=== PATIENT | male | born 1950 | race Caucasian/White ===

== ENCOUNTER → 2016-07-12 | Outpatient (CLI) | payer OTHER ==
[~2016-07-12] MED LIST: ASCO10003 PO; ATOR10TA88 PO; CYAN100020 PO; GLC/500 PO; LISIPOW PO; MULTTAB5 PO; OXYSR10 PO; RXC5 PO; VITA400C15 PO
[2016-07-12 16:08] LABS: BLOOD UREA NITROGEN 14 mg/dl (7-18); BUN/CREATININE RATIO 22.8 (10-20); CALCIUM 9.2 mg/dl (8.5-10.1); CARBON DIOXIDE 26 mmol/L (21-32); CHLORIDE 107 mmol/L (98-107); GLUCOSE 93 mg/dl (70-99); SODIUM 140 mmol/L (136-145)
[2016-07-13 06:24] LABS: ESTIMATED AVERAGE GLUCOSE 114 mg/dl; HA1C FLAG Normal (Normal)
== END | disposition home or self-care (01) ==
LOC: C.LAB 14:49
PROVIDERS: ATTEND Internal Medicine Geriatric Medicine
DX: E78.5 Hyperlipidemia, unspecified (principal); E11.9 Type 2 diabetes mellitus without complications; I10 Essential (primary) hypertension

== ENCOUNTER → 2016-10-15 | Outpatient (CLI) | payer OTHER ==
--- NOTE | 2016-10-15 15:18 | DIAGNOSTIC IMAGING REPORT ---
CHEST 2 VIEWS ROUTINE CLINICAL HISTORY: PT WENT TO LAB FIRST, PLEASE SEND TO [facility] chest pain. Dyspnea. COMPARISON STUDY: No previous studies for comparison. FINDINGS: The bones soft tissues and hemidiaphragms are normal. The cardiomediastinal silhouette is normal. The lungs are clear. The pulmonary vasculature is normal. IMPRESSION: Negative chest. Electronically signed by: Anders Mccullough M.D. 10/15/2016 3:16 PM Dictated Date/Time: 10/15/2016 3:16 PM
== END | disposition home or self-care (01) ==
LOC: C.CPL 14:12
PROVIDERS: ATTEND Orthopaedic Surgery Orthopaedic Surgery of the Spine
DX: M47.12 Other spondylosis with myelopathy, cervical region (principal)

== ENCOUNTER 2016-10-18 08:08 | Inpatient (IN) | payer OTHER ==
[2016-10-15 15:40] LABS: BASO % 0.5 %; BASO ABS # 0.03 K/uL (0-0.2); COMPLETE YES; EOS % 4.4 %; HEMATOCRIT 41.2 % (42-52); IG% 0.2 %; LYMPH % 28.9 %; LYMPH ABS # 1.76 K/uL (1.2-3.4); MEAN CORPUSCULAR HEMOGLOBIN 31.2 pg (25-34); MEAN CORPUSCULAR HGB CONC 34.7 g/dl (32-36); MEAN PLATELET VOLUME 10.2 fL (7.4-10.4); MONO % 9.2 %; NEUT % 56.8 %; PLATELET COUNT 157 K/uL (130-400); RED BLOOD COUNT 4.58 M/uL (4.7-6.1); WHITE BLOOD COUNT 6.09 K/uL (4.8-10.8)
[2016-10-15 15:44] LABS: URINE APPEARANCE CLEAR (CLEAR); URINE BILIRUBIN NEG (NEG); URINE COLOR YELLOW; URINE NITRITE NEG (NEG); URINE PH 7.5 (4.5-7.5); URINE SPECIFIC GRAVITY 1.012 (1.000-1.030); UROBILINOGEN NEG (NEG)
[2016-10-15 15:49] LABS: MANUAL MICROSCOPIC REQUIRED? NO; REVIEW REQ? NO
[2016-10-15 16:01] LABS: BLOOD UREA NITROGEN 11 mg/dl (7-18); BUN/CREATININE RATIO 16.7 (10-20); CALCIUM 8.6 mg/dl (8.5-10.1); CARBON DIOXIDE 27 mmol/L (21-32); CHLORIDE 108 mmol/L (98-107); CREATININE 0.66 mg/dl (0.60-1.40); GLUCOSE 104 mg/dl (70-99); POTASSIUM 3.9 mmol/L (3.5-5.1); SODIUM 141 mmol/L (136-145)
[2016-10-18] VITALS (14 sets, daily range): BP systolic 121–157; BP diastolic 77–92; PULSE 67–97; TEMP 36.4–37; O2SAT 92–99; Ht 175.3 cm; Wt 93.0 kg
[~2016-10-18] VITALS: Ht 175.3 cm; Wt 93.0 kg
[~2016-10-18 08:08] MED LIST changes: +ATROPINE SULFATE 0.1 MG/ML 5ML SYR IV PRN; +CEFAZOLIN 2000 MG/60 ML D5W 60 ML IV SCH; +EpHEDrine SULFATE INJ 50 MG/ML AMP IV PRN; +FENTANYL CITRATE INJ 50 MCG/1 ML 2 ML VIAL IV PRN; +HYDROmorphone INJ 1 MG/ML SYR IV PRN; +LACTATED RINGER'S 1000ML 1,000 ML IV SCH; +ONDANSETRON INJ 2 MG/ML 2 ML VIAL IV PRN; -RXC5 PO
--- NOTE | 2016-10-18 08:40 | History & Physical Bridge Note ---
H&P Re-Evaluation Bridge Note: I have examined the patient, reviewed the History & Physical and in the interval since the performance of the History & Physical I have noted the following changes of clinical significance: No changes noted
--- NOTE | 2016-10-18 08:41 | History and Physical ---
History & Physical Date Oct 18, 2016. Chief Complaint neck and arm pain History of Present Illness The patient is a 66 year old male with complaints of Additional History Hepatic Disease: No Endocrine Disorder: No Kidney Disease: No Hypertension: No Heart Disease: No Bleeding Tendencies: No Infectious Diseases: No Allergies Coded Allergies: No Known Allergies (Unverified , 10/18/16) Home Medications Scheduled Ascorbic Acid (Vitamin C), 1 TAB PO DAILY Atorvastatin (Lipitor), 10 MG PO DAILY Cyanocobalamin (Vitamin B12), 1 TAB PO DAILY Metformin Hcl (Glucophage), 500 MG PO BID Multiple Vitamins W/ Minerals (Centrum), 1 TAB PO DAILY Tocopheryl Acet,Dl-Alpha (Vitamin E), 400 INTER.UNIT PO DAILY [Lisinopril], 20 MG PO DAILY Physical Examination Skin: warm/dry, no rash Eyes: normal inspection, EOMI, sclerae normal ENT: normal ENT inspection, pharynx normal Head: normocephalic, atraumatic Neck: supple, no adenopathy, trachea midline Respiratory/Chest: lungs clear, normal breath sounds, no respiratory distress Cardiovascular: regular rate, rhythm, no edema, no murmur Abdomen / GI: normal bowel sounds, non tender Back: normal inspection Extremities: normal inspection, normal range of motion Neurologic/Psych: no motor/sensory deficits, alert, normal reflexes, oriented x 3 Diagnosis cervical stenosis Plan of Treatment cervical corpectomy C4 fusion C3-5
[2016-10-18] MEDS ORDERED: SODIUM CHLORIDE 0.9% PF 50 ML VIAL ONE (08:57)
[2016-10-18] MEDS ORDERED: BACITRACIN 50000 UNIT VIAL ONE (08:58)
[2016-10-18] MEDS ORDERED: FENTANYL CITRATE INJ 50 MCG/1 ML 2 ML VIAL ONE ×3 (09:01→10:47)
[2016-10-18] MEDS ORDERED: MIDAZOLAM HCL 1 MG/ML 2ML VIAL ONE (09:01)
[2016-10-18] MEDS ORDERED: HYDROmorphone INJ 2 MG/ML SYR/VIAL ONE ×2 (09:42→11:11)
[2016-10-18] MEDS ORDERED: PROPOFOL IV EMULSION 10 MG/ML 20 ML VIAL IV ONE (10:50)
[2016-10-18] MEDS ORDERED: DEXAMETHASONE SOD INJ 4 MG/ML VIAL ONE (10:50)
[2016-10-18] MEDS ORDERED: LIDOCAINE HCL 2% 2 ML VIAL (20MG/ML) ONE (10:50)
[2016-10-18] MEDS ORDERED: ROCURONIUM BROMIDE 10 MG/ML 5 ML VIAL ONE (10:50)
[2016-10-18] MEDS ORDERED: FLOSEAL HEMOSTATIC MATRIX 5ML TOP ONE (11:05)
[2016-10-18] MEDS ORDERED: ACETAMINOPHEN IV 100 ML IV PRN (11:15)
[2016-10-18] MEDS ORDERED: DiphenhydrAMINE HCL 50 MG/ML VIAL IV PRN (11:15)
[2016-10-18] MEDS ORDERED: OXYCODONE HCL IR 5 MG TAB (IMMEDIATE RELEASE) PO PRN (11:15)
[2016-10-18] MEDS ORDERED: LORAZEPAM INJ 0.5 MG in SYRINGE 0.75 ML IV PRN (11:15)
[2016-10-18] MEDS ORDERED: RACEPINEPHRINE 2.25% NEBU SOLN 0.5 ML VIAL INH PRN (11:15)
[2016-10-18] MEDS ORDERED: MAGNESIUM HYDROXIDE SUSP 30 ML UDC PO PRN (11:15)
[2016-10-18] MEDS ORDERED: NALOXONE HCL 0.4 MG/1 ML VIAL/CARP IV PRN (11:15)
[2016-10-18] MEDS ORDERED: DO NOT ADMINISTER FLU VACCINE PRN ×3 (11:15)
[2016-10-18] MEDS ORDERED: HYDROmorphone INJ 0.5 MG/0.5 ML SYR IV PRN (11:15)
[2016-10-18] MEDS ORDERED: DO NOT ADMINISTER PNEUMOCOCCAL VACCINE PRN ×2 (11:15)
[2016-10-18] MEDS ORDERED: LORAZEPAM 0.5 MG TAB PO PRN (11:15)
[2016-10-18] MEDS ORDERED: ONDANSETRON INJ 2 MG/ML 2 ML VIAL IV PRN (11:15)
[2016-10-18] MEDS ORDERED: DEXAMETHASONE INJ 8 MG in SYRINGE 0 ML IV PRN (11:15)
--- NOTE | 2016-10-18 11:15 | [facility] Post Operative Brief Note ---
Immediate Operative Summary Operative Date Oct 18, 2016. Pre-Operative Diagnosis Cervical Stenosis Post-Operative Diagnosis Cervical Stenosis Procedure(s) Performed C4 Anterior Removal of Cervical Vertebral Body, C3-C5 Decompression and Fusion. Adjacent Discs, Placement of Prosthetic Spacer, Application of Adelia, Anterior Plate and Screw Fixation Surgeon Dr. Kenan Sumner [employer] Officer Surgeon(s) Todd Schaffer PA-C Estimated Blood Loss 125CC Findings stenosis Specimens None per surgeon
[2016-10-18] MEDS ORDERED: EpHEDrine SULFATE 50MG/5ML SYR ONE (11:39)
[2016-10-18] MEDS ORDERED: PHENYLEPHRINE 100MCG/ML 5ML SYR ONE (11:39)
[2016-10-18] MEDS ORDERED: ONDANSETRON INJ 2 MG/ML 2 ML VIAL ONE (11:39)
[2016-10-18] MEDS ORDERED: NEOSTIGMINE METHYLSULFATE 1 MG/ML 10ML VIAL ONE (11:39)
[2016-10-18] MEDS ORDERED: GLYCOPYRROLATE INJ 0.2 MG/ML VIAL ONE (11:39)
[2016-10-18] MEDS ORDERED: PHARMACY GLYCEMIC MGMT CONSULT SCH (12:29)
--- NOTE | 2016-10-18 12:31 | OPERATIVE REPORT ---
DATE OF OPERATION: 10/18/2016 PREOPERATIVE DIAGNOSIS: Cervical spinal stenosis with myeloradiculopathy. POSTOPERATIVE DIAGNOSIS: Same. PROCEDURE PERFORMED: 1. Anterior cervical corpectomy C4. 2. Anterior cervical arthrodesis C3-C5. 3. Placement of PEEK cage 27 mm in height C3-C5. 4. Placement of locally harvested morcellized autograft combined with Adelia bone graft in the interbody cage. 5. Application of Cortes plate and screws from C3-C5. SURGEON: Dr. Kenan Sumner. HOSEMAN: Todd Schaffer PA-C. ANESTHESIA: General. DISPOSITION: The patient awakened and taken to PACU in stable condition. HISTORY OF PATIENT'S PROBLEMS: This is a 66-year-old male who presents with above-mentioned diagnosis. After failing an extensive course of nonoperative care, elected to undergo the above-mentioned procedure. Risks, benefits, pros, cons, and alternatives were outlined in detail preoperatively. PROCEDURE IN DETAIL: The patient was met with preoperatively, case discussed, and all questions were addressed. At that point, the patient was taken back to operative suite, and after undergoing successful general intubation by the department of anesthesia, was placed in a supine position on Luc table with head in Irene head inspector. All bony prominences were well padded and the eyes were inspected to ensure there was no external pressure placed upon them. At this point, the anterior cervical spine was prepped and draped in normal sterile fashion. With the assistance of fluoroscopy, we identified the C4 vertebral body and a transverse incision was placed along the right anterior aspect of the cervical spine overlying this region. Sharp dissection with the assistance of bipolar electrocautery performed down to and exposing the anterior cervical spine from C3-C5. A self-retaining retractor was placed. I then performed a complete discectomy of C3-C4 out to the uncovertebral joints bilaterally, followed by C4-C5. [place] distracting pins were then placed in C3-C5 to distract across the C4 vertebral body. Complete corpectomy was then performed including removal of all posterior annular fibers, longitudinal ligament, and bilateral foraminotomies, addressing absolutely severe spinal stenosis. After this was complete, endplates were burred to subcortical bleeding bone and a 27 mm PEEK cage filled with locally harvested morcellized autograft and Adelia bone graft tapped in position. Distracting apparatus was removed. Cortes plate and screws applied with the assistance of fluoroscopy. The incision was then copiously irrigated, explored to ensure there was no damage to surrounding structures or remaining bleeding. A 10 round YINA drain inserted, then closed with 2-0 Vicryl in the fascia, 4-0 Monocryl for final skin closure. Steri-Strips and sterile dressing placed. The patient was awakened and taken to PACU in stable condition. I attest to the content of the Intraoperative Record and any orders documented therein. Any exception s are noted below.
--- NOTE | 2016-10-18 12:35 | Anesthesiology Progress Note ---
Anesthesia Post Op Note Date & Time Oct 18, 2016 at 12:35 Vital Signs Pain Intensity: 0 Vital Signs Past 12 Hours Date Time Temp Pulse Resp B/P (MAP) Pulse Ox O2 Delivery O2 Flow Rate FiO2 10/18/16 12:25 79 18 142/87 97 Nasal Cannula 2 10/18/16 12:15 81 16 154/89 97 Nasal Cannula 2 10/18/16 12:05 80 16 138/89 98 Nasal Cannula 2 10/18/16 11:55 84 17 136/83 97 Nasal Cannula 2 10/18/16 11:45 76 15 124/87 98 Mask 10 10/18/16 11:35 75 12 134/80 100 Mask 10 10/18/16 11:28 36.0 78 14 128/78 98 Mask 10 10/18/16 08:30 36.8 67 18 144/86 (105) 93 Room Air Notes Mental Status: alert / awake / arousable, participated in evaluation Pt Amnestic to Procedure: Yes Nausea / Vomiting: adequately controlled Pain: adequately controlled Airway Patency, RR, SpO2: stable & adequate BP & HR: stable & adequate Hydration State: stable & adequate Anesthetic Complications: no major complications apparent
--- NOTE | 2016-10-18 13:09 | DIAGNOSTIC IMAGING REPORT ---
INTRAOPERATIVE RADIOGRAPHS CLINICAL HISTORY: Cervical spinal fusion. Fluoroscopy time: 10 seconds. FINDINGS: 2 spot fluoroscopic views of the cervical spine are presented. There are changes from anterior spinal fusion seen from C3-C6. There has likely been corpectomy at C4 and C5. The orthopedic hardware appears intact. An endotracheal tube is in place. A surgical drain is seen on the second image. IMPRESSION: Intraoperative images from C3 -C6 spinal fusion as above. See operative report for detailed findings. Electronically signed by: Juma Fried M.D. 10/18/2016 1:08 PM Dictated Date/Time: 10/18/2016 1:07 PM
[2016-10-18] MEDS ORDERED: RXC5 PO (13:21)
--- NOTE | 2016-10-18 13:22 | Discharge Instructions ---
Discharge Instructions Date of Service Oct 18, 2016. Admission Reason for Admission: Cervical Spinal Stenosis Discharge Discharge Diagnosis / Problem: cervical stenosis Discharge Goals Goal(s): Improve function Activity Recommendations Activity Limitations: per Instructions/Follow-up section . Instructions / Follow-Up Instructions / Follow-Up ACTIVITY RECOMMENDATIONS: SELF CARE INSTRUCTIONS AFTER CERVICAL FUSIONS 1. No smoking. Smoking drastically decreases the chance of a solid fusion. 2. No bending, lifting more than 5 pounds, or twisting (roll like a log when turning in bed). 3. You may shower 3 days after surgery. Thoroughly dry wound. Do not soak in the tub. 4. Cervical collar: Must be worn at all times including sleeping. You may remove the brace only to bath, eat and if you are sitting in a recliner. 5. Please walk as much as you can for exercise. Gradually increase the distance that you walk as your endurance increases. SPECIAL CARE INSTRUCTIONS: VERY IMPORTANT TO READ AND REVIEW A. Do not take any anti-inflammatory medications (i.e. Indocin, Advil, Aspirin, Naprosyn, Aleve, Motrin, etc.) as these may inhibit the chance of a solid fusion. Tylenol is okay to take. B. Your surgical incision has been closed with a cosmetic suture under the skin that will dissolve in about 6 weeks. In 14 days, you can use a pair of clean scissors and cut the suture that is left outside of the skin at the ends of your incision. C. Complications are uncommon, but please contact us if you have any signs or symptoms of: 1. wound infection (fever higher than 102.5 degrees F, redness, separation of wound, drainage, or increasing pain from the incision) 2. blood clots in legs (pain, swelling, redness and warmth in legs) 3. urinary tract infection (fever higher than 102.5 degrees, burning upon urination or increased frequency of urination) 4. nerve problems (inability to walk on your toes or heels, numbness, loss of bowel or bladder control) 5. any other symptoms that concern you. D. Please call the office at if you have any concerns or questions about your operation or recovery. MANAGING PAIN AFTER SPINAL SURGERY 1. Narcotic medication is intended for short-term use and will be provided for surgical pain. Surgical pain usually lasts for a period of 4-6 weeks. Narcotic medication includes Percocet, Vicodin, Darvocet, Tylenol #3 or Lortab. 2. Longer-term pain is more appropriately treated with non-narcotic medication such as Tylenol ES. 3. Muscle spasm is not appropriately treated with narcotics. Muscle relaxers such as Soma, Flexeril or Skelaxin can be used along with Tylenol ES. 4. Remember that we all live with some "aches and pains". This is not unusual or uncommon after an injury or as we get older. 5. We will provide appropriate medication within the normal guidelines of their prescribed use. We will also be very cautious and aware of potential abuse and extended duration of patients' medication needs. 6. Please allow 2-3 days to process refills. Prescriptions will not be mailed but must be picked up at the office. FOLLOW UP VISIT: Keep your scheduled follow-up appointment. Any questions, please call the office at . Current Hospital Diet Patient's current hospital diet: Clear Liquid Diet Discharge Diet Recommended Diet: Regular Diet Procedures Procedures Performed: C4 Anterior Removal of Cervical Vertebral Body, C3-C5 Decompression and Fusion. Adjacent Discs, Placement of Prosthetic Spacer, Application of Adelia, Anterior Plate and Screw Fixation Pending Studies Studies pending at discharge: no Medical Emergencies . Who to Call and When: Medical Emergencies: If at any time you feel your situation is an emergency, please call 911 immediately. . Non-Emergent Contact Non-Emergency issues call your: Primary Care Provider . "Provider Documentation" section prepared by Kenan Sumner. . VTE Core Measure Inpt VTE Proph given/why not?: Rosanna Sy, SCD's
[2016-10-18] MEDS: SODIUM CHLORIDE 0.9% 1000ML 1,000 ML IV SCH (13:24)
[2016-10-18] MEDS ORDERED: HYDROmorphone INJ 1 MG/ML SYR IV PRN (13:30)
[2016-10-18] MEDS ORDERED: GLUCOSE 10 TABS/TUBE PO PRN (14:00)
[2016-10-18] MEDS ORDERED: SCOPOLAMINE 1.5 MG TDSY TD SCH (14:00)
[2016-10-18] MEDS ORDERED: GLUCOSE 40% GEL 15 GM TUBE PO PRN (14:00)
[2016-10-18] MEDS ORDERED: GLUCAGON FOR INJ 1 MG VIAL SQ PRN (14:00)
[2016-10-18] MEDS ORDERED: DEXTROSE 50% 50 ML SYR IV PRN (14:00)
--- NOTE | 2016-10-18 14:03 | Pharmacy Progress Note ---
Glycemic Control Intl Consult Date of Service Oct 18, 2016. Scope Glycemic Pharmacist consulted by Dr Sumner on 10/18/16 for glycemic control and to write orders per [facility] inpatient glycemic control protocol Objective Weight (Kilograms): 93.000 Accuchecks BSG (last 24hrs): Test 10/18/16 08:35 10/18/16 11:33 Bedside Glucose 111 mg/dl (70-99) 129 mg/dl (70-99) Recent Pertinent Medications Outpatient Anti-diabetic Regimen: * Metformin 500mg PO BID * last dose 10/16 prior to surgery * A1c = 5.6 % 07/12/16 The patient is currently receiving: * nothing at this time Risk Factors for Insulin Resistance: * Steroids: Dexamethasone 12mg x1 in OR, then 6mg IV every 8 hours x 3 doses post-operatively * Infection: prophylactic ABX with cefazolin * IVF: LR --> NSS * Recent Surgery: POD #0 * Diet: Clear liquid Assessment & Plan ASSESSMENT: 10/18/16 * 66 y/o admitted postoperatively who will receive high dose stress steroids x 24 hours * utilize aggressive, weight based dosing of basal/bolus insulin to prevent steroid induced hyperglycemia postoperatively * BSG on admission WNL (despite not having metformin for 48 hours prior to admission) * A1c current and WNL * Diet = clears * may need to decrease insulin doses if PO intake inadequate (f/u AM 10/19) PLAN FOR INPATIENT GLYCEMIC CONTROL: * Basal insulin: * Lantus 20 units SQ x1 today with dinner (stress of 3) * Lantus 15 units SQ x1 AM on 10/19 (stress of 2) * Lantus 0-10 units (depending on BSG) SQ x1 PM on 10/19 (stress of 0-1) * Bolus insulin: * NovoLog SQ AC and HS (plus overnight Accu-checks x1 night) - CF: 20mg/dL/unit - CR: 1 unit per 7g of CHO consumed - Goal: 100-140mg/dL to ensure euglycemia postoperatively * Orals: * hold metformin until PO intake established * A1c: * current, add to discharge instructions * Please note that the plan above was derived based on current level of insulin resistance and hospital stress. These recommendations are appropriate for inpatient admission only. Plan of care upon discharge will need to be reassessed to avoid potential outpatient hypo/hyperglycemia. Thank you.
[2016-10-18] MEDS: CHECK SCOPOLAMINE PATCH PLACEMENT SCH (16:14)
[2016-10-18] MEDS ORDERED: INSULIN GLARGINE SOLOSTAR 100 UNITS/ML 3 ML PEN SC SCH (17:45)
[2016-10-18] MEDS: INSULIN ASPART 100 UNITS/ML 3 ML PEN SC SCH ×2 (18:45→21:25)
[2016-10-18] MEDS: CEFAZOLIN IV 2,000 MG in DEXTROSE 5% 50ML 50 ML IV SCH (18:49)
[2016-10-18] MEDS: DEXAMETHASONE INJ 6 MG in SYRINGE 0 ML IV SCH (18:49)
[2016-10-18] MEDS: DOCUSATE SODIUM 100 MG CAP PO SCH (21:23)
[2016-10-19] VITALS (8 sets, daily range): BP systolic 124–144; BP diastolic 75–86; PULSE 74–86; TEMP 36.4–36.7; O2SAT 93–97
[2016-10-19] MEDS: CHECK SCOPOLAMINE PATCH PLACEMENT SCH ×2 (00:05→08:53)
[2016-10-19] MEDS: SODIUM CHLORIDE 0.9% 1000ML 1,000 ML IV SCH (00:32)
[2016-10-19] MEDS: CEFAZOLIN IV 2,000 MG in DEXTROSE 5% 50ML 50 ML IV SCH ×2 (01:49→08:07)
[2016-10-19] MEDS: DEXAMETHASONE INJ 6 MG in SYRINGE 0 ML IV SCH ×2 (01:50→08:52)
[2016-10-19] MEDS: INSULIN ASPART 100 UNITS/ML 3 ML PEN SC SCH ×3 (03:52→08:57)
--- NOTE | 2016-10-19 08:32 | PROGRESS NOTE ---
DATE: 10/19/2016 SUBJECTIVE: Mr. Enriquez is here postoperative day #1, status post anterior cervical corpectomy and fusion. He is doing very well at this point, having no difficulty swallowing. He has been up and walking throughout the night. He has had no issues with food tolerance, no nausea and pain is well-controlled. He has no complaints at this point. PHYSICAL EXAMINATION: VITAL SIGNS: On exam, he is afebrile. Vital signs are stable. YINA drain is in place and holding suction. He had 20 mL out on the last shift. Strength and sensation are both intact. ABDOMEN: Soft, nontender. EXTREMITIES: Calves are supple and nontender. ASSESSMENT: The patient is stable postoperative day #1. PLAN: At this point, the patient is doing very well. His pain symptoms are significantly improved. He is really not having any symptoms at this point and would like to go home. I believe this is reasonable. Discharge instructions were reviewed in detail with the patient. He is to use his collar when he is up and walking, but may remove when he is sitting quietly in a chair. We will see him in the office in 2 weeks for followup visit or sooner if he develops any increasing pain, increased numbness or tingling going down the arms or hands or drainage from the incision.
--- NOTE | 2016-10-19 08:40 | DISCHARGE SUMMARY ---
DATE OF DISCHARGE: 10/19/2016 ADMITTING DIAGNOSIS: Cervical stenosis with myeloradiculopathy. DISCHARGE DIAGNOSIS: Same. OPERATION AND DATES: Anterior cervical corpectomy at C4 with anterior cervical arthrodesis C3-C5. HOSPITAL COURSE AND TREATMENT: Mr. Enriquez is a pleasant individual with history, physical examination, radiographic images consistent with the above-mentioned diagnosis. For this reason, he was brought to the operating room and underwent the above-mentioned procedure which was performed by Dr. Sumner under general anesthesia. He left the operating room with a 10 round drain and dressing in place. He was brought to PACU in stable condition. He was noted to move his arms and legs without difficulties in PACU. He was placed on GI and DVT prophylaxis and sent to the orthopedic floor. He has progressed nicely and on postoperative day #1 had no complaints, was deemed safe for home discharge. He was to resume his prehospital medications. He was given a prescription for oxycodone for pain control. He was to stand and walk on a regular basis, change his dressing once daily until it is dry. Once it is dry, maybe he can shower. He is to keep his collar in place when he is in the motor vehicle or up and walking. For followup care, he is to see us in 2 weeks from his surgical date. He is to call and be seen sooner if he developed any difficulty swallowing, fevers, chills, drainage from the incision, or increasing pain.
[2016-10-19] MEDS: DOCUSATE SODIUM 100 MG CAP PO SCH (08:51)
[2016-10-19] MEDS ORDERED: INSULIN GLARGINE SOLOSTAR 100 UNITS/ML 3 ML PEN SC SCH ×2 (09:00→21:00)
[2016-10-19] MEDS ORDERED: LISINOPRIL 20 MG TAB PO SCH (09:00)
[2016-10-19] MEDS ORDERED: ATORVASTATIN 10 MG TAB PO SCH (09:00)
[2016-10-20] MEDS ORDERED: BISACODYL 5 MG TABEC PO PRN (06:00)
[2016-10-20] MEDS ORDERED: BISACODYL 10 MG SUPP PR PRN (06:00)
[2016-10-20] MEDS ORDERED: POLYETHYLENE (MIRALAX) 17 GM PACK PO SCH (09:00)
--- NOTE | 2016-11-22 08:38 | EDITING REQUIRED CODING QUERY ---
CQSUPPORTING DIAGNOSIS NEEDED A supporting diagnosis is required for the test/procedure performed on this patient in order for us to be reimbursed by the patient's insurance. Please provide a supporting diagnosis for the following test/procedure listed below next to the test name along with your signature. *If there is no additional diagnosis for this patient that would support the following test/procedure please document that below next to the test/procedure. Test(s)/Procedure(s) that require a supporting diagnosis: DOS 10/18/16 VERTEBROPLASTY, VERTEBRAL AUGMENTATION (KYPHOPLASTY) PERCUTANEOUS Provider Signature: Date: Thank you Babs Freire Health Information Management Once completed, please kindly fax back to [phone] For questions please call [phone]
--- NOTE | 2016-12-16 09:20 | EDITING REQUIRED CODING QUERY ---
CQSUPPORTING DIAGNOSIS NEEDED A supporting diagnosis is required for the test/procedure performed on this patient in order for us to be reimbursed by the patient's insurance. Please provide a supporting diagnosis for the following test/procedure listed below next to the test name along with your signature. *If there is no additional diagnosis for this patient that would support the following test/procedure please document that below next to the test/procedure. Test(s)/Procedure(s) that require a supporting diagnosis: DOS 10/18/16 VERTEBROPLASTY VERTEBRAL AUGMENTATION (KYPHOPLASTY) PERCUTANEOUS LAST QUERY WAS RETURNED WITH SIGNATURE BUT NO DIAGNOSIS NEED SIGNATURE AND DIAGNOSIS THANK YOU Provider Signature: Date: Thank you Babs Freire Health Information Management Once completed, please kindly fax back to [phone] For questions please call [phone]
== END 2016-10-19 10:56 | disposition home or self-care (01) | DRG 472 ==
LOC: C.ACU 08:08 → C.3E 11:18 → ENRESERV 12:31
PROVIDERS: ADMIT Orthopaedic Surgery Orthopaedic Surgery of the Spine; ATTEND Orthopaedic Surgery Orthopaedic Surgery of the Spine
PROC: 0RG20AJ Fusion of 2 or more Cervical Vertebral Joints with Interbody Fusion Device, Posterior Approach, Anterior Column, Open Approach (ICD-10-PCS; principal; 2016-10-18 10:15)
PROC: 0RG Upper Joints, Fusion (ICD-10-PCS; principal; 2016-10-18 10:15)
PROC: 0RT30ZZ Resection of Cervical Vertebral Disc, Open Approach (ICD-10-PCS; principal; 2016-10-18 10:15)
DX: M48.02 Spinal stenosis, cervical region (principal); M47.12 Other spondylosis with myelopathy, cervical region; M54.12 Radiculopathy, cervical region; E11.9 Type 2 diabetes mellitus without complications

== ENCOUNTER → 2017-01-29 | Outpatient (CLI) | payer OTHER ==
[~2017-01-29] MED LIST changes: -ATROPINE SULFATE 0.1 MG/ML 5ML SYR IV PRN; -CEFAZOLIN 2000 MG/60 ML D5W 60 ML IV SCH; -EpHEDrine SULFATE INJ 50 MG/ML AMP IV PRN; -FENTANYL CITRATE INJ 50 MCG/1 ML 2 ML VIAL IV PRN; -HYDROmorphone INJ 1 MG/ML SYR IV PRN; -LACTATED RINGER'S 1000ML 1,000 ML IV SCH; -ONDANSETRON INJ 2 MG/ML 2 ML VIAL IV PRN; -OXYSR10 PO; +RXC5 PO
[2017-01-29 13:37] LABS: BLOOD UREA NITROGEN 13 mg/dl (7-18); BUN/CREATININE RATIO 16.9 (10-20); CALCIUM 9.7 mg/dl (8.5-10.1); CARBON DIOXIDE 25 mmol/L (21-32); CHLORIDE 104 mmol/L (98-107); CHOLESTEROL 135 mg/dl (0-200); CREATININE 0.77 mg/dl (0.60-1.40); GLUCOSE 108 mg/dl (70-99); POTASSIUM 4.3 mmol/L (3.5-5.1); SODIUM 138 mmol/L (136-145)
[2017-01-29 13:48] LABS: CHOLESTEROL/HDL RATIO 2.1; HDL CHOLESTEROL 63 mg/dl; LDL CHOLESTEROL CALCULATED 60 mg/dl; TRIGLYCERIDES 59 mg/dl (0-150); VERY LOW DENSITY LIPOPROT CALC 12 mg/dl
== END | disposition home or self-care (01) ==
LOC: C.LAB 10:26
PROVIDERS: ATTEND Internal Medicine Geriatric Medicine
DX: E78.5 Hyperlipidemia, unspecified (principal); E11.9 Type 2 diabetes mellitus without complications; I10 Essential (primary) hypertension

== ENCOUNTER → 2017-07-25 | Outpatient (CLI) | payer OTHER ==
[~2017-07-25] MED LIST changes: +ATOR10TA82 PO; -ATOR10TA88 PO
[2017-07-25 11:33] LABS: HEMOGLOBIN A1C 5.8 % (4.5-5.6)
[2017-07-25 11:35] LABS: BLOOD UREA NITROGEN 16 mg/dl (7-18); CALCIUM 9.1 mg/dl (8.5-10.1); CARBON DIOXIDE 26 mmol/L (21-32); GLUCOSE 103 mg/dl (70-99); POTASSIUM 4.3 mmol/L (3.5-5.1); SODIUM 138 mmol/L (136-145)
== END | disposition home or self-care (01) ==
LOC: C.LAB 10:28
PROVIDERS: ATTEND Internal Medicine Geriatric Medicine
DX: Z00.00 Encounter for general adult medical examination without abnormal findings (principal); E11.9 Type 2 diabetes mellitus without complications; I10 Essential (primary) hypertension